=== PATIENT | female | born 1960 | race Caucasian/White ===

== ENCOUNTER 2018-10-29 01:07 | Inpatient (IN) | payer OTHER ==
[~2018-10-29] VITALS: Ht 147.3 cm; Wt 94.8 kg
[2018-10-29] VITALS (8 sets, daily range): BP systolic 113–161; BP diastolic 70–92; Ht 147.3 cm; Wt 94.8 kg
[2018-10-29 02:24] LABS: BASOPHIL % 1.3 % (0-2)
[2018-10-29 02:27] LABS: CALCIUM 7.5 mg/dL (8.5-10.1); CARBON DIOXIDE 21.1 mmol/L (21-32); CREATININE SERUM 2.2 mg/dL (0.6-1.0); POTASSIUM SERUM 3.6 mmol/L (3.5-5.1)
[2018-10-29 02:28] LABS: PLATELET COUNT 68 x10^3mcL (130-400)
[2018-10-29 02:37] LABS: BILIRUBIN TOTAL 0.54 mg/dL (0.20-1.00); FREE T4 1.09 ng/dL (0.76-1.46); TOTAL PROTEIN, SERUM 7.4 g/dL (6.4-8.2)
[2018-10-29 02:41] LABS: ALBUMIN 2.5 g/dL (3.4-5.0)
[2018-10-29 05:06] LABS: CHOLESTEROL/HDL RATIO 2.7
[2018-10-29 08:01] LABS: UA SPECIFIC GRAVITY 1.015 (1.005-1.035); microscopic required? YES; urine erythrocyte 3+ (NEGATIVE)
[2018-10-29 08:39] LABS: AMPHETAMINE QUAL UR POSITIVE (See below)
[2018-10-29 10:35] LABS: IRON 51 ug/dL (50-170); TOTAL IRON BINDING CAPACITY 325 ug/dL (250-450)
[2018-10-29 10:54] LABS: BASOPHIL % 0.6 % (0-2)
[2018-10-29 11:05] LABS: PLATELET COUNT 60 x10^3mcL (130-400); RED CELL DISTRIBUTION WIDTH 16.3 % (11.5-14.5)
[2018-10-29 11:54] LABS: rbc morphology (normal/abnorm) ABNORMAL (NORMAL)
[2018-10-29 13:19] LABS: RED BLOOD CELLS 2.8 M/mm3 (4.10-5.10)
[2018-10-29 22:14] LABS: BASOPHIL % 0.2 % (0-2)
[2018-10-29 22:21] LABS: PLATELET COUNT 70 x10^3mcL (130-400); RED CELL DISTRIBUTION WIDTH 16.4 % (11.5-14.5)
[2018-10-30 04:39] VITALS: BP 150/73
[2018-10-30 07:03] LABS: CALCIUM 7.3 mg/dL (8.5-10.1); CARBON DIOXIDE 20.3 mmol/L (21-32); CREATININE SERUM 2.3 mg/dL (0.6-1.0); MAGNESIUM 1.8 mg/dL (1.8-2.4); PHOSPHOROUS 3.5 mg/dL (2.5-4.9); POTASSIUM SERUM 3.8 mmol/L (3.5-5.1)
[2018-10-30 07:22] LABS: BASOPHIL % 1.6 % (0-2)
[2018-10-30 07:32] LABS: PLATELET COUNT 58 x10^3mcL (130-400); RED CELL DISTRIBUTION WIDTH 15.2 % (11.5-14.5)
[2018-10-30 08:21] VITALS: BP 139/83
[2018-10-30 12:36] VITALS: BP 129/78
[2018-10-30 15:51] VITALS: BP 120/74
[2018-10-30 17:09] VITALS: BP 115/57
[2018-10-30 19:01] LABS: BASOPHIL % 0.3 % (0-2)
[2018-10-30 19:07] LABS: PLATELET COUNT 58 x10^3mcL (130-400); RED CELL DISTRIBUTION WIDTH 16.3 % (11.5-14.5)
[2018-10-30 20:05] VITALS: BP 118/54
[2018-10-31 05:47] VITALS: BP 123/63
[2018-10-31 06:43] LABS: CALCIUM 7.3 mg/dL (8.5-10.1); CREATININE SERUM 2.2 mg/dL (0.6-1.0); MAGNESIUM 1.8 mg/dL (1.8-2.4); PHOSPHOROUS 3.3 mg/dL (2.5-4.9); POTASSIUM SERUM 4.4 mmol/L (3.5-5.1)
[2018-10-31 07:46] LABS: BASOPHIL % 1.5 % (0-2)
[2018-10-31 07:47] LABS: PLATELET COUNT 63 x10^3mcL (130-400); RED CELL DISTRIBUTION WIDTH 16.6 % (11.5-14.5)
[2018-10-31 08:23] VITALS: BP 137/76
[2018-10-31 11:25] VITALS: BP 127/71
[2018-10-31] MEDS ORDERED: IND20 PO (12:13)
[2018-10-31] MEDS ORDERED: ELA10 PO (12:13)
[2018-10-31] MEDS ORDERED: LAC30L PO (12:14)
[2018-10-31] MEDS ORDERED: L20 PO (12:33)
[2018-10-31 13:06] VITALS: BP 137/76
== END 2018-10-31 16:10 | disposition home or self-care (01) ==
LOC: ED 01:07 → DU 03:56
PROVIDERS: Emergency Medicine; Family Medicine; Internal Medicine Gastroenterology
PROC: 06L38CZ Occlusion of Esophageal Vein with Extraluminal Device, Via Natural or Artificial Opening Endoscopic (ICD-10-PCS; principal; 2018-10-29 09:00)
PROC: 30233N1 Transfusion of Nonautologous Red Blood Cells into Peripheral Vein, Percutaneous Approach (ICD-10-PCS; 2018-10-29 09:00)
DX: K74.60 Unspecified cirrhosis of liver (principal); N17.0 Acute kidney failure with tubular necrosis; I85.01 Esophageal varices with bleeding; D69.6 Thrombocytopenia, unspecified; E83.51 Hypocalcemia; D62 Acute posthemorrhagic anemia; E88.09 Other disorders of plasma-protein metabolism, not elsewhere classified; Z68.41 Body mass index [BMI] 40.0-44.9, adult; F84.5 Asperger's syndrome; Z87.820 Personal history of traumatic brain injury; Z87.891 Personal history of nicotine dependence; Z88.0 Allergy status to penicillin; Z88.8 Allergy status to other drugs, medicaments and biological substances; F15.10 Other stimulant abuse, uncomplicated; F12.10 Cannabis abuse, uncomplicated; K76.6 Portal hypertension; K31.89 Other diseases of stomach and duodenum
CPT/HCPCS: 43235; 83880; 84439; C9113; G0480; J0696; J1200; J1610; J1940; J2250; J2270; J2310; J2354; J2405; J2765; J3010; J3490; J7040; J7042; P9016; Q0092; Q0163

== ENCOUNTER 2019-02-01 17:11 | Inpatient (IN) | payer OTHER ==
[~2019-02-01] VITALS: Ht 147.3 cm; Wt 89.5 kg
[~2019-02-01 17:11] MED LIST: ELA10 PO; IND20 PO; L20 PO; LAC30L PO
[2019-02-01 18:30] LABS: BASOPHIL % 0.3 % (0-2)
[2019-02-01 18:31] LABS: PLATELET COUNT 72 x10^3mcL (130-400); RED CELL DISTRIBUTION WIDTH 17.5 % (11.5-14.5)
[2019-02-01 18:39] LABS: CALCIUM 7.9 mg/dL (8.5-10.1); CARBON DIOXIDE 23.2 mmol/L (21-32); CHLORIDE SERUM 109 mmol/L (98-107); CREATININE SERUM 2.8 mg/dL (0.6-1.0); GFR1 19 mL/min; GLUCOSE SERUM 146 mg/dL (74-106); POTASSIUM SERUM 3.3 mmol/L (3.5-5.1); SODIUM SERUM 144 mmol/L (136-145)
[2019-02-01 18:50] LABS: ALKALINE PHOSPHATASE 190 U/L (46-116); ALT/SGPT 31 U/L (14-59); AMYLASE 69 U/L (25-115); AST/SGOT 55 U/L (15-37); BILIRUBIN TOTAL 0.71 mg/dL (0.20-1.00); LIPASE 253 IU/L (73-393); MAGNESIUM 2.1 mg/dL (1.8-2.4); T4(THYROXINE) 11.5 ug/dL (4.7-13.3)
[2019-02-01 18:51] LABS: ALBUMIN 2.8 g/dL (3.4-5.0); CHOLESTEROL 96 mg/dL (<200); HDL CHOLESTEROL 32 mg/dL (40-60); TOTAL PROTEIN, SERUM 8.7 g/dL (6.4-8.2)
[2019-02-01 19:30] LABS: AMPHETAMINE QUAL UR NONE DETECTED (See below)
[2019-02-01 19:31] LABS: microscopic required? YES
[2019-02-01 19:33] LABS: urine erythrocyte 3+ (NEGATIVE)
[2019-02-01 19:36] LABS: UA SPECIFIC GRAVITY 1.005 (1.005-1.035)
[2019-02-01 20:40] VITALS: BP 132/90
[2019-02-01 21:47] VITALS: BP 162/99
[2019-02-02 05:25] VITALS: BP 148/94
[2019-02-02 06:35] LABS: BASOPHIL % 0.4 % (0-2)
[2019-02-02 06:42] LABS: PLATELET COUNT 67 x10^3mcL (130-400); RED CELL DISTRIBUTION WIDTH 17.6 % (11.5-14.5)
[2019-02-02 06:44] LABS: BILIRUBIN TOTAL 0.57 mg/dL (0.20-1.00); CALCIUM 7.6 mg/dL (8.5-10.1); CARBON DIOXIDE 21.2 mmol/L (21-32); CREATININE SERUM 2.9 mg/dL (0.6-1.0); PHOSPHOROUS 5.4 mg/dL (2.5-4.9); POTASSIUM SERUM 3.9 mmol/L (3.5-5.1); TOTAL PROTEIN, SERUM 7.9 g/dL (6.4-8.2)
[2019-02-02 06:47] LABS: ALBUMIN 2.5 g/dL (3.4-5.0)
[2019-02-02 10:24] VITALS: BP 137/77
[2019-02-02 14:40] VITALS: BP 143/81
[2019-02-02 16:23] VITALS: BP 135/83
[2019-02-02 20:24] VITALS: BP 148/71
[2019-02-03 05:27] VITALS: BP 131/80
[2019-02-03 06:58] LABS: CALCIUM 7.3 mg/dL (8.5-10.1); CREATININE SERUM 3.2 mg/dL (0.6-1.0); MAGNESIUM 1.9 mg/dL (1.8-2.4); PHOSPHOROUS 5.1 mg/dL (2.5-4.9); POTASSIUM SERUM 3.7 mmol/L (3.5-5.1)
[2019-02-03 07:46] LABS: BASOPHIL % 0.3 % (0-2)
[2019-02-03 07:49] LABS: PLATELET COUNT 61 x10^3mcL (130-400); RED CELL DISTRIBUTION WIDTH 17.8 % (11.5-14.5); rbc morphology (normal/abnorm) ABNORMAL (NORMAL)
[2019-02-03 09:48] VITALS: BP 125/50
[2019-02-03 13:01] LABS: SOURCE FLUID THORACENTESIS
[2019-02-03 13:02] LABS: APPEARANCE FLUID TURBID; COLOR FLUID PALE YELLOW; RBC FLUID 4233 /cumm; WBC FLUID 544 /cumm
[2019-02-03 13:16] VITALS: BP 131/85
[2019-02-03 13:47] LABS: LYMPHOCYTE FLUID 57 %; MONOCYTE FLUID 30 %
[2019-02-03 17:37] VITALS: BP 150/54
[2019-02-03 20:36] VITALS: BP 111/57
[2019-02-04 05:28] VITALS: BP 114/57
[2019-02-04 07:14] LABS: BASOPHIL % 0.5 % (0-2); PLATELET COUNT 53 x10^3mcL (130-400); RED CELL DISTRIBUTION WIDTH 17.2 % (11.5-14.5)
[2019-02-04 07:27] LABS: CALCIUM 6.9 mg/dL (8.5-10.1); CARBON DIOXIDE 24.6 mmol/L (21-32); CREATININE SERUM 3.5 mg/dL (0.6-1.0); PHOSPHOROUS 4.9 mg/dL (2.5-4.9); POTASSIUM SERUM 3.5 mmol/L (3.5-5.1)
[2019-02-04 08:54] VITALS: BP 134/64
[2019-02-04 09:11] VITALS: Ht 147.3 cm; Wt 89.5 kg
[2019-02-04 10:18] VITALS: BP 134/64
[2019-02-04 12:12] VITALS: BP 147/79
[2019-02-04 16:50] VITALS: BP 152/61
[2019-02-04 20:40] VITALS: BP 152/79
[2019-02-05 06:17] VITALS: BP 124/64
[2019-02-05 06:40] LABS: CARBON DIOXIDE 23.8 mmol/L (21-32); CREATININE SERUM 3.5 mg/dL (0.6-1.0); POTASSIUM SERUM 4.1 mmol/L (3.5-5.1)
[2019-02-05 06:55] LABS: BASOPHIL % 0.5 % (0-2)
[2019-02-05 06:56] LABS: PLATELET COUNT 63 x10^3mcL (130-400); RED CELL DISTRIBUTION WIDTH 17.1 % (11.5-14.5)
[2019-02-05 08:32] VITALS: BP 120/62
[2019-02-05 12:39] VITALS: BP 112/61
[2019-02-05 16:30] VITALS: BP 111/60
[2019-02-05 20:52] VITALS: BP 133/72
[2019-02-06 05:51] VITALS: BP 133/64
[2019-02-06 06:32] LABS: BASOPHIL % 0.4 % (0-2)
[2019-02-06 06:37] LABS: CALCIUM 7.3 mg/dL (8.5-10.1); CARBON DIOXIDE 23.9 mmol/L (21-32); CREATININE SERUM 3.5 mg/dL (0.6-1.0); POTASSIUM SERUM 4.4 mmol/L (3.5-5.1)
[2019-02-06 06:54] LABS: PLATELET COUNT 65 x10^3mcL (130-400); RED CELL DISTRIBUTION WIDTH 17.5 % (11.5-14.5)
[2019-02-06 08:08] VITALS: BP 131/73
[2019-02-06 12:12] VITALS: BP 122/66
[2019-02-06 16:09] LABS: CREATININE UR 14.4 mg/dL
[2019-02-06 16:25] VITALS: BP 132/68
[2019-02-06 20:10] VITALS: BP 110/55
[2019-02-07 05:01] VITALS: BP 120/60
[2019-02-07 06:19] LABS: BASOPHIL % 0.4 % (0-2)
[2019-02-07 06:36] LABS: CARBON DIOXIDE 22.8 mmol/L (21-32); CREATININE SERUM 3.3 mg/dL (0.6-1.0); PHOSPHOROUS 5.5 mg/dL (2.5-4.9); POTASSIUM SERUM 4.6 mmol/L (3.5-5.1)
[2019-02-07 06:41] LABS: PLATELET COUNT 60 x10^3mcL (130-400); RED CELL DISTRIBUTION WIDTH 17.5 % (11.5-14.5)
[2019-02-07 09:33] VITALS: BP 120/47
[2019-02-07 12:18] VITALS: BP 134/66
[2019-02-07 15:58] VITALS: BP 118/67
[2019-02-07 21:05] VITALS: BP 105/66
[2019-02-08 05:32] VITALS: BP 112/46
[2019-02-08 07:05] LABS: CALCIUM 7.2 mg/dL (8.5-10.1); CARBON DIOXIDE 22.8 mmol/L (21-32); CREATININE SERUM 3.4 mg/dL (0.6-1.0); POTASSIUM SERUM 5.4 mmol/L (3.5-5.1)
[2019-02-08 08:36] LABS: BASOPHIL % 1.2 % (0-2); PLATELET COUNT 62 x10^3mcL (130-400); RED CELL DISTRIBUTION WIDTH 17.7 % (11.5-14.5)
[2019-02-08 08:59] VITALS: BP 111/51
[2019-02-08 10:49] VITALS: BP 111/51
[2019-02-08 13:17] VITALS: BP 129/56
[2019-02-08 15:10] VITALS: BP 129/56
== END 2019-02-08 16:19 | disposition home or self-care (01) ==
LOC: ED 17:11 → DU 19:42
PROVIDERS: Emergency Medicine; General Practice; Internal Medicine; ADMIT Internal Medicine
PROC: 0W9G3ZZ Drainage of Peritoneal Cavity, Percutaneous Approach (ICD-10-PCS; principal; 2019-02-02)
PROC: 0W993ZZ Drainage of Right Pleural Cavity, Percutaneous Approach (ICD-10-PCS; 2019-02-02)
DX: K74.60 Unspecified cirrhosis of liver (principal); J96.01 Acute respiratory failure with hypoxia; N17.0 Acute kidney failure with tubular necrosis; E43 Unspecified severe protein-calorie malnutrition; D61.818 Other pancytopenia; J90 Pleural effusion, not elsewhere classified; E11.22 Type 2 diabetes mellitus with diabetic chronic kidney disease; R18.8 Other ascites; E87.8 Other disorders of electrolyte and fluid balance, not elsewhere classified; E83.39 Other disorders of phosphorus metabolism; J44.9 Chronic obstructive pulmonary disease, unspecified; E02 Subclinical iodine-deficiency hypothyroidism; Z68.41 Body mass index [BMI] 40.0-44.9, adult; N39.0 Urinary tract infection, site not specified; D50.9 Iron deficiency anemia, unspecified; N18.4 Chronic kidney disease, stage 4 (severe); E66.9 Obesity, unspecified; E87.6 Hypokalemia; Z68.36 Body mass index [BMI] 36.0-36.9, adult; Z87.891 Personal history of nicotine dependence; Z87.820 Personal history of traumatic brain injury; Z88.0 Allergy status to penicillin; Z88.1 Allergy status to other antibiotic agents; Z87.11 Personal history of peptic ulcer disease; Z83.3 Family history of diabetes mellitus; Z82.49 Family history of ischemic heart disease and other diseases of the circulatory system; Z98.891 History of uterine scar from previous surgery; Z98.51 Tubal ligation status; Z88.6 Allergy status to analgesic agent
CPT/HCPCS: 32555; 36600; 49083; 82962; 83880; 87116; 87206; C1729; G0480; J0696; J1940; J2270; J2405; J3370; J7030; J7040; J7620; Q0092; Q0169

== ENCOUNTER 2019-03-09 19:02 | Inpatient (IN) | payer OTHER ==
[~2019-03-09] VITALS: Ht 147.3 cm; Wt 74.8 kg
[2019-03-09 19:08] VITALS: Ht 147.3 cm; Wt 74.8 kg
[2019-03-09 19:31] LABS: BASOPHIL % 0.4 % (0-2)
[2019-03-09 19:32] LABS: PLATELET COUNT 56 x10^3mcL (130-400)
[2019-03-09 19:40] LABS: CALCIUM 7.7 mg/dL (8.5-10.1); CARBON DIOXIDE 18.2 mmol/L (21-32); CREATININE SERUM 3.2 mg/dL (0.6-1.0); POTASSIUM SERUM 3.7 mmol/L (3.5-5.1)
[2019-03-09 19:44] LABS: ALBUMIN 3.1 g/dL (3.4-5.0); BILIRUBIN TOTAL 0.63 mg/dL (0.20-1.00); TOTAL PROTEIN, SERUM 8.6 g/dL (6.4-8.2)
[2019-03-09 20:41] LABS: microscopic required? YES
[2019-03-09 20:43] LABS: urine erythrocyte 3+ (NEGATIVE)
[2019-03-09 22:14] LABS: AMPHETAMINE QUAL UR NONE DETECTED (See below)
[2019-03-09 22:15] LABS: MAGNESIUM 2.1 mg/dL (1.8-2.4); PHOSPHOROUS 4.4 mg/dL (2.5-4.9)
[2019-03-09 22:17] LABS: CHOLESTEROL/HDL RATIO 2.3
[2019-03-09 22:25] LABS: FREE T4 0.98 ng/dL (0.76-1.46); FREE THYROXINE INDEX 2.8 ug/dL (1.4-4.5); T4(THYROXINE) 10.5 ug/dL (4.7-13.3)
[2019-03-09 22:35] LABS: T3 TOTAL 1.83 ng/mL
[2019-03-09 23:19] VITALS: BP 153/83
[2019-03-10 02:28] VITALS: BP 153/83
[2019-03-10 05:50] VITALS: BP 135/75
[2019-03-10 06:40] LABS: BASOPHIL % 0.3 % (0-2)
[2019-03-10 07:02] LABS: CALCIUM 7.5 mg/dL (8.5-10.1); CARBON DIOXIDE 16.9 mmol/L (21-32); CREATININE SERUM 3.2 mg/dL (0.6-1.0); MAGNESIUM 2.1 mg/dL (1.8-2.4); PHOSPHOROUS 4.9 mg/dL (2.5-4.9); POTASSIUM SERUM 3.4 mmol/L (3.5-5.1)
[2019-03-10 08:15] LABS: RED CELL DISTRIBUTION WIDTH 18.5 % (11.5-14.5)
[2019-03-10 08:16] LABS: PLATELET COUNT 48 x10^3mcL (130-400)
[2019-03-10 09:10] VITALS: BP 147/64
[2019-03-10 13:33] VITALS: BP 163/96
[2019-03-10 17:29] VITALS: BP 150/90
[2019-03-10 19:04] LABS: SOURCE FLUID THORACENTESIS
[2019-03-10 19:05] LABS: APPEARANCE FLUID CLOUDY; COLOR FLUID YELLOW; LYMPHOCYTE FLUID 52 %; MONOCYTE FLUID 35 %; RBC FLUID 2120 /cumm; WBC FLUID 190 /cumm
[2019-03-10 21:38] VITALS: BP 148/84
[2019-03-11 05:22] VITALS: BP 145/86
[2019-03-11 06:22] LABS: BASOPHIL % 0.8 % (0-2)
[2019-03-11 06:33] LABS: IRON 58 ug/dL (50-170); TOTAL IRON BINDING CAPACITY 319 ug/dL (250-450)
[2019-03-11 06:43] LABS: RED CELL DISTRIBUTION WIDTH 18.8 % (11.5-14.5)
[2019-03-11 07:09] LABS: CALCIUM 7.3 mg/dL (8.5-10.1); CARBON DIOXIDE 14.9 mmol/L (21-32); CREATININE SERUM 3.4 mg/dL (0.6-1.0); POTASSIUM SERUM 3.6 mmol/L (3.5-5.1)
[2019-03-11 08:57] LABS: PLATELET COUNT 45 x10^3mcL (130-400)
[2019-03-11 09:00] VITALS: BP 133/67
[2019-03-11 12:15] VITALS: BP 142/81
[2019-03-11 16:30] VITALS: BP 135/72
[2019-03-11 21:00] VITALS: BP 161/94
[2019-03-12 05:13] VITALS: BP 144/80
[2019-03-12 07:01] LABS: CARBON DIOXIDE 18.6 mmol/L (21-32); CREATININE SERUM 3.5 mg/dL (0.6-1.0); POTASSIUM SERUM 3.3 mmol/L (3.5-5.1)
[2019-03-12 09:00] LABS: RED CELL DISTRIBUTION WIDTH 18.1 % (11.5-14.5)
[2019-03-12 09:54] VITALS: BP 131/69
[2019-03-12 10:19] LABS: rbc morphology (normal/abnorm) ABNORMAL (NORMAL)
[2019-03-12 10:20] LABS: ovalocyte/elliptocyte 1+; tear drop cell (dacryocyte) 1+
[2019-03-12 10:21] LABS: PLATELET COUNT 46 x10^3mcL (130-400)
[2019-03-12 13:01] VITALS: BP 130/65
[2019-03-12 17:18] VITALS: BP 142/85
[2019-03-12 19:19] VITALS: BP 142/85
[2019-03-12 20:54] VITALS: BP 141/93
[2019-03-13 06:15] VITALS: BP 133/73
[2019-03-13 06:41] LABS: BASOPHIL % 0.3 % (0-2)
[2019-03-13 06:59] LABS: PLATELET COUNT 50 x10^3mcL (130-400); RED CELL DISTRIBUTION WIDTH 18.9 % (11.5-14.5)
[2019-03-13 07:16] LABS: CALCIUM 6.9 mg/dL (8.5-10.1); CARBON DIOXIDE 22.2 mmol/L (21-32); CREATININE SERUM 3.6 mg/dL (0.6-1.0); MAGNESIUM 1.8 mg/dL (1.8-2.4); PHOSPHOROUS 4.4 mg/dL (2.5-4.9)
[2019-03-13 10:01] VITALS: BP 136/82
[2019-03-13 13:29] VITALS: BP 136/75
[2019-03-13 17:24] VITALS: BP 128/73
[2019-03-13 20:31] VITALS: BP 150/76
[2019-03-14 05:00] VITALS: BP 144/79
[2019-03-14 06:39] LABS: CALCIUM 6.7 mg/dL (8.5-10.1); CARBON DIOXIDE 25.4 mmol/L (21-32); CREATININE SERUM 3.4 mg/dL (0.6-1.0); POTASSIUM SERUM 3.7 mmol/L (3.5-5.1)
[2019-03-14 07:26] LABS: PLATELET COUNT 55 x10^3mcL (130-400); RED CELL DISTRIBUTION WIDTH 18.6 % (11.5-14.5)
[2019-03-14 09:15] VITALS: BP 144/73
[2019-03-14 11:04] LABS: BAND NEUTROPHIL 1 % (0-10); MONOCYTE 8 % (0-7); SEGMENTED NEUTROPHILS 75 % (37-75)
[2019-03-14 11:06] LABS: PLATELET MORPHOLOGY PLATELETS DECREASED; rbc morphology (normal/abnorm) ABNORMAL (NORMAL)
[2019-03-14 17:40] VITALS: BP 128/55
[2019-03-14 19:30] VITALS: BP 117/57
[2019-03-14 21:32] VITALS: BP 141/85
[2019-03-15 06:15] VITALS: BP 124/69
[2019-03-15 07:03] LABS: CALCIUM 7.1 mg/dL (8.5-10.1); CARBON DIOXIDE 26.2 mmol/L (21-32); CREATININE SERUM 3.4 mg/dL (0.6-1.0); POTASSIUM SERUM 3.5 mmol/L (3.5-5.1)
[2019-03-15 08:17] VITALS: BP 153/96
[2019-03-15 09:03] LABS: PLATELET COUNT 61 x10^3mcL (130-400); RED CELL DISTRIBUTION WIDTH 18.9 % (11.5-14.5)
[2019-03-15 13:54] LABS: BAND NEUTROPHIL 5 % (0-10); MONOCYTE 13 % (0-7); SEGMENTED NEUTROPHILS 50 % (37-75)
[2019-03-15 13:55] LABS: PLATELET MORPHOLOGY PLATELETS DECREASED; rbc morphology (normal/abnorm) ABNORMAL (NORMAL)
[2019-03-15 16:36] VITALS: BP 145/72
[2019-03-15 19:40] VITALS: BP 154/82
[2019-03-16 06:08] VITALS: BP 144/83
[2019-03-16 06:36] LABS: CARBON DIOXIDE 26.6 mmol/L (21-32); CREATININE SERUM 3.4 mg/dL (0.6-1.0); MAGNESIUM 1.7 mg/dL (1.8-2.4); POTASSIUM SERUM 3.3 mmol/L (3.5-5.1)
[2019-03-16 08:50] VITALS: BP 144/83
[2019-03-16] MEDS ORDERED: LAC PO (10:08)
[2019-03-16] MEDS ORDERED: CIPRO500 MG PO (10:10)
[2019-03-16] MEDS ORDERED: FLA250 PO (10:12)
[2019-03-16] MEDS ORDERED: LACTULOSE10 GM/152 PO (10:13)
== END 2019-03-16 11:54 | disposition home or self-care (01) ==
LOC: ED 19:02 → DU 21:53 → MU 03-13 09:59
PROVIDERS: Emergency Medicine; Family Medicine; Internal Medicine; Internal Medicine Nephrology; ADMIT Internal Medicine
PROC: 0W993ZZ Drainage of Right Pleural Cavity, Percutaneous Approach (ICD-10-PCS; principal; 2019-03-10)
DX: K74.69 Other cirrhosis of liver (principal); N17.0 Acute kidney failure with tubular necrosis; J96.20 Acute and chronic respiratory failure, unspecified whether with hypoxia or hypercapnia; J90 Pleural effusion, not elsewhere classified; K65.2 Spontaneous bacterial peritonitis; E72.20 Disorder of urea cycle metabolism, unspecified; D69.59 Other secondary thrombocytopenia; E11.22 Type 2 diabetes mellitus with diabetic chronic kidney disease; N18.4 Chronic kidney disease, stage 4 (severe); E11.65 Type 2 diabetes mellitus with hyperglycemia; E44.1 Mild protein-calorie malnutrition; E87.2 Acidosis; R18.8 Other ascites; J44.9 Chronic obstructive pulmonary disease, unspecified; N39.0 Urinary tract infection, site not specified; D64.89 Other specified anemias; E87.6 Hypokalemia; N20.0 Calculus of kidney; F12.10 Cannabis abuse, uncomplicated; F15.10 Other stimulant abuse, uncomplicated; F11.10 Opioid abuse, uncomplicated; Z79.4 Long term (current) use of insulin; Z68.34 Body mass index [BMI] 34.0-34.9, adult; Z91.19 Patient's noncompliance with other medical treatment and regimen; Z88.0 Allergy status to penicillin; Z88.8 Allergy status to other drugs, medicaments and biological substances; Z83.3 Family history of diabetes mellitus; Z82.49 Family history of ischemic heart disease and other diseases of the circulatory system; Z80.9 Family history of malignant neoplasm, unspecified; Z87.891 Personal history of nicotine dependence; E02 Subclinical iodine-deficiency hypothyroidism; D64.9 Anemia, unspecified; D63.8 Anemia in other chronic diseases classified elsewhere; R16.1 Splenomegaly, not elsewhere classified; B19.20 Unspecified viral hepatitis C without hepatic coma
CPT/HCPCS: 32555; 82962; 83880; 84439; 87116; 87206; 88344; C1729; J0696; J1940; J2060; J2270; J2405; J2765; J3490; J7030; J7040; J7620; Q0092